=== PATIENT | male | born 1970 | race African-American/Black ===

== ENCOUNTER 2021-09-10 07:52 | Emergency (ER) | payer OTHER, SELFPAY ==
[2021-09-10 07:53] VITALS: BP 118/65; PULSE 82; RESP 17; O2SAT 97
[2021-09-10 08:01] VITALS: RESP 17
--- NOTE | 2021-09-10 08:15 | ECG_ITS ---
Measurements Intervals [place] Rate: 74 P: 62 DC: 175 QRS: -17 QRSD: 77 T: -26 QT: 379 QTc: 422 Interpretive Statements SINUS RHYTHM WITH SINUS ARRHYTHMIA DELAYED PRECORDIAL R/S TRANSITION VOLTAGE CRITERIA FOR LVH BORDERLINE T WAVE ABNORMALITY- INFERIOR LEADS BASELINE ARTIFACT- V2 BORDERLINE ECG Electronically Signed On 09-10-2021 9:30:02 [employer] by Saman Parry D.O.
--- NOTE | 2021-09-10 08:21 | PC.NURSE ---
called poison control and they state they will fax over information regarding both the Tramadol and No Doz. she states based on the pt's weight his max dose for both medications would be 800mg. She states to treat his symptoms and to monitor him for the next few hours. She states she will call back to check in.
[2021-09-10 08:34] LABS: Basophils Percent Auto 0.3 % (0.2-1.2); Eosinophils Absolute Auto 0.1 K/mm3 (0-0.3); Eosinophils Percent Auto 0.7 % (0-4.4); Hematocrit 41.2 % (42.0-52.0); Hemoglobin 14.5 g/dL (14.0-18.0); Immature Granulocyte Absolute 0.02 K/mm3 (0.00-0.031); Immature Granulocyte Percent A 0.3 % (0-0.5); Lymphocytes Percent Auto 17.4 % (18.3-44.2); Mean Corpuscular HGB Conc 35.2 g/dl (32-36); Mean Corpuscular Hemoglobin 31.9 pg (26-34); Mean Corpuscular Volume 90.5 fl (80-100); Mean Platelet Volume 9.8 fl (7.4-10.4); Monocytes Absolute Auto 0.8 K/mm3 (0.1-0.6); Neutrophils Absolute Auto 4.9 K/mm3 (1.3-6.7); Neutrophils Percent Auto 70.3 % (45.5-73.1); Platelet Count Result 212 k/mm3 (150-375); Red Blood Count 4.55 M/mm3 (4.6-6.20); White Blood Count 6.9 K/mm3 (4.5-10.0)
--- NOTE | 2021-09-10 08:41 | ED.OVERDOSE ---
HPI - Overdose General Chief Complaint: Overdose Stated Complaint: si/od Time Seen by Provider: 09/10/21 07:55 Source: patient Mode of arrival: ambulatory Limitations: no limitations History of Present Illness HPI Narrative: Patient is a 51-year-old male brought in by EMS after taking approximately 4 tramadol and 4 no dos pills prior to arrival. Patient states that he had an argument with his fianc?e, he just wanted to relax and sleep but had no intention of hurting himself or others. Patient adamantly denies having any suicidal thoughts. He denies any suicidal thoughts or attempts in the past. Patient denies any homicidal ideations. Patient denies any auditory or visual hallucinations. Related Data Allergies Allergy/AdvReac Type Severity Reaction Status Date / Time iodine AdvReac Unknown Verified 09/10/21 08:07 shellfish derived AdvReac Swelling Verified 09/10/21 08:07 of Lip/Tongue/Throat Review of Systems Review of Systems: All systems reviewed & are unremarkable except as noted in HPI and below Constitutional: Constitutional: Denies body ache(s), Denies chills, Denies excessive sweating, Denies fatigue, Denies fever(s), Denies headache(s), Denies lethargy, Denies malaise, Denies weakness and Denies weight loss Eyes: Eyes: Denies blurry vision, Denies change in vision and Denies loss of vision ENT: Denies dizziness, Denies ear discharge, Denies headache(s), Denies lip swelling, Denies epistaxis, Denies nasal congestion, Denies neck pain, Denies throat swelling and Denies tongue swelling Cardiovascular: Cardiovascular: Denies chest pain, Denies chest pain at rest, Denies chest pain with activity, Denies diaphoresis, Denies rapid heart rate, Denies edema, Denies irregular heart rhythm, Denies lightheadedness, Denies palpitations, Denies dyspnea and Denies dyspnea on exertion Respiratory: Respiratory: Denies chest congestion, Denies cough, Denies hemoptysis, Denies dyspnea and Denies dyspnea on exertion Gastrointestinal: Gastrointestinal: Denies abdominal pain, Denies melena, Denies hematochezia, Denies diarrhea, Denies nausea, Denies vomiting and Denies hematemesis Musculoskeletal: Musculoskeletal: Denies abnormal gait, Denies deformity, Denies joint swelling, Denies limited range of motion, Denies neck pain and Denies numbness Neurologic: Denies Abnormal speech present, Denies abnormal gait, Denies confusion, Denies dizziness, Denies headache(s), Denies focal weakness, Denies loss of vision, Denies numbness, Denies Other visual disturbances, Denies Sensory deficit (Neuro) and Denies weakness Psychiatric: Psychiatric: Denies confusion, Denies depression, Denies auditory hallucinations, Denies homicidal ideation and Denies suicidal ideation Endocrine: Endocrine: Denies cold intolerance, Denies excessive sweating, Denies fatigue, Denies heat intolerance and Denies palpitations Hematologic/Lymphatic: Hematologic/Lymphatic: Denies easy bleeding and Denies easy bruising Allergic/Immunologic: Allergic/Immunologic: Denies lip swelling, Denies throat swelling and Denies tongue swelling PMFSH Social History Social History Substance use type: marijuana Comments Past medical history: None Family history: Hypertension Social history: Positive for smoker, occasional EtOH use, occasional marijuana use Exam Const: General: cooperative, healthy appearing, comfortable, no acute distress, well developed, alert and awake; No confusion Orientation/consciousness: oriented to person, oriented to place, oriented to time, patient oriented x3 and No confusion Limitations: no limitations HENMT: Head: normal to inspection, normocephalic and atraumatic Ears: hearing grossly normal bilaterally, TM normal on the right and TM normal on the left General nose exam: Normal external nose present, Normal nares present and No nasal discharge present Face and sinus: normal facial exam Mouth: Yes Normal oral and palatal mucosa present, Yes li
[2021-09-10 08:43] LABS: Acetaminophen < 10 ug/mL (10-30); Ethanol < 10 mg/dL (<10); Salicylate < 1.0 mg/dL (2-20)
[2021-09-10 08:45] LABS: Alanine Aminotransferase 19 U/L (4-50); Alkaline Phosphatase 70 U/L (38-126); Anion Gap 8 mmol/L (8-16); Aspartate Amino Transferase 39 U/L (17-59); Bilirubin,Total 0.3 mg/dL (0.2-1.3); Blood Urea Nitrogen 10 mg/dL (9-20); Calcium 8.6 mg/dL (8.4-10.2); Carbon Dioxide 24 mmol/L (22-30); Chloride 106 mmol/L (98-107); Estimated CRCL calculation 90 ml/min; Estimated Glomerular Filt Rate > 60; Glucose 122 mg/dL (65-110); Magnesium 1.9 mg/dL (1.6-2.3); Potassium 3.1 mmol/L (3.4-5.0); Sodium 138 mmol/L (137-145)
--- NOTE | 2021-09-10 08:51 | PC.NURSE ---
when talking with Dr. Em although pt is no risk on the [place] Scale he did consume pills so belongings, chairs, trash can etc. removed from the room. no sitter required at this time. pt still connected to pulse ox, blood pressure cuff, and heart leads to be monitored.
--- NOTE | 2021-09-10 09:07 | PC.NURSE ---
pt not able to give urine sample at this time. pt refusing straight catheter.
--- NOTE | 2021-09-10 09:14 | PC.NURSE ---
ordered pt breakfast.
[2021-09-10 09:36] VITALS: BP 118/74; PULSE 88; RESP 21; O2SAT 98
[2021-09-10 10:01] LABS: Barbiturate Screen Urine Negative (Negative); Benzodiazepines Screen Urine Negative (Negative)
[2021-09-10 10:37] LABS: Amphetamine Screen Urine Negative (Negative); Cannabinoid Screen Urine Positive (Negative); Cocaine Screen Urine Negative (Negative); Methadone Screen Urine Negative (Negative); Opiate Screen Urine Negative (Negative); Phencyclidine Screen Urine Negative (Negative)
[2021-09-10 10:51] VITALS: BP 133/63; PULSE 74; RESP 16; O2SAT 97
[2021-09-10] MEDS: POTASSIUM CHLORIDE 20 MEQ PACKET (FOR LIQUID) 40 MEQ PO (10:52)
--- NOTE | 2021-09-10 10:54 | PC.NURSE ---
[facility].
[2021-09-10 14:34] VITALS: BP 128/78; PULSE 78; RESP 18; O2SAT 99
[2021-09-10 16:57] VITALS: BP 132/78; PULSE 78; RESP 18; O2SAT 99
== END 2021-09-10 16:58 | disposition home or self-care (01) ==
PROVIDERS: Emergency Provider Emergency Medicine
DX: T40.421A Poisoning by tramadol, accidental (unintentional), initial encounter (principal); T43.611A Poisoning by caffeine, accidental (unintentional), initial encounter; F17.200 Nicotine dependence, unspecified, uncomplicated; R94.31 Abnormal electrocardiogram [ECG] [EKG]
CPT/HCPCS: 36415; 80053; 80307; 83735; 85025; 93005; 99284; A9270